=== PATIENT | male | born 1995 | race Caucasian/White ===

== ENCOUNTER → 2017-10-17 | Outpatient (CLI) | payer OTHER | END | disposition home or self-care (01) | LOC: KCIC MRI 11:26 | DX: M25.561 Pain in right knee (principal) | CPT/HCPCS: 73721 ==

== ENCOUNTER → 2018-11-23 | Outpatient (CLI) | payer OTHER ==
[~2018-11-23] MED LIST: GADOBUTROL 7.5 MMOL/7.5 ML VIAL INT ART ONE; IOHEXOL 300 MG/ML 10ML VIAL. INT ART ONE; LIDOCAINE 1% Multi-Dose 20 ML VIAL. ID ONE
--- NOTE | 2018-11-23 13:34 | KCIC ---
MR arthrogram of the right shoulder HISTORY: Right shoulder instability. Pain and limited range of motion. Wrestling injury 6 weeks ago. TECHNIQUE: Routine 4 plane sequences were obtained after intra-articular contrast injection. FINDINGS: Acromioclavicular joint is intact. Slight medial downsloping of the acromion. No evidence of a rotator cuff tear. No significant fluid or contrast in the subdeltoid bursa. Tear of the anteroinferior labrum. Minimal irregularity at the posterolateral humeral head, at least raising the question of a small chronic Hill-Sachs fracture. There is irregularity of the superior labrum with some increased signal compatible with a tear, coronal series 8, image 11 and Aber series 12, image 12. No bone destruction. No acute fracture. Biceps tendon intact. IMPRESSION: 1. Anteroinferior labral tear. 2. Small superior labral tear. Electronically signed by: Mohan March MD (11/23/2018 1:31 PM) [id number]
--- NOTE | 2018-11-23 17:14 | KCIC ---
PROCEDURE: Right shoulder injection using fluoroscopic guidance, prior to MR. HISTORY: Shoulder pain. TECHNIQUE: The procedure was explained to the patient as were potential risks, including among others infection, bleeding or allergic reaction. All questions were answered. Informed written and verbal consent was obtained. The shoulder was prepped and draped in the usual sterile manner. Following administration of local anesthetic, a 22-gauge needle was advanced into the anterior shoulder. Following negative aspiration, 12 cc of a solution of 5cc Omnipaque-300 contrast, 5 cc 1% lidocaine, 10 cc normal saline, and 0.1 cc gadolinium was injected without difficulty. The needle was removed. There was good hemostasis at the injection site. The patient left in stable condition without immediate complication. A single spot image is obtained. FLUOROSCOPY TIME:?33 seconds Electronically signed by: Mohan March MD (11/23/2018 5:10 PM) [email or web address]
== END | disposition home or self-care (01) ==
LOC: KCIC 08:22
PROVIDERS: ATTEND Orthopaedic Surgery
DX: S43.431A Superior glenoid labrum lesion of right shoulder, initial encounter (principal); X58.XXXA Exposure to other specified factors, initial encounter; Y93.89 Activity, other specified; Y92.89 Other specified places as the place of occurrence of the external cause; Y99.8 Other external cause status
CPT/HCPCS: 23350; 73040; 73222; A9585; Q9967

== ENCOUNTER → 2019-11-22 | Outpatient (CLI) | payer OTHER ==
[~2019-11-22] MED LIST changes: +0.9 % SODIUM CHLORIDE 10 ML DISP.SYRIN. ID ONE; +CONTRAST GIVEN. MC PRN; -GADOBUTROL 7.5 MMOL/7.5 ML VIAL INT ART ONE; +GADOTERATE 5 MMOL/10ML VIAL. INT ART ONE; -IOHEXOL 300 MG/ML 10ML VIAL. INT ART ONE; +IOHEXOL 300 MG/ML 50 ML VIAL. INT ART ONE
--- NOTE | 2019-11-22 13:39 | KCIC ---
MRI arthrogram of the left shoulder HISTORY: Left shoulder pain. Injury July 2019. TECHNIQUE: Routine multiplanar sequences are obtained. FINDINGS: Acromioclavicular joint is intact. No evidence of rotator cuff tear. No significant subdeltoid bursal fluid or contrast. Articular cartilage intact. Nondisplaced tear of the anteroinferior labrum. Heterogeneous signal with contrast accumulation in the superior labrum compatible with a tear. Biceps tendon is intact. No acute fracture. No aggressive bone destruction. Mild cystic-type change at the posterior greater tuberosity. IMPRESSION: 1. Anteroinferior labral tear. 2. Superior labral tear. Electronically signed by: Mohan March MD (11/22/2019 1:37 PM) [id number]
--- NOTE | 2019-11-22 14:02 | KCIC ---
PROCEDURE: Left shoulder injection using fluoroscopic guidance, prior to MR. HISTORY: Shoulder pain. TECHNIQUE: The procedure was explained to the patient as were potential risks, including among others infection, bleeding or allergic reaction. All questions were answered. Informed written and verbal consent was obtained. The shoulder was prepped and draped in the usual sterile manner. Following administration of local anesthetic, a 22-gauge needle was advanced into the anterior shoulder. Following negative aspiration, 12 cc of a solution of 5cc Omnipaque-300 contrast, 5 cc 1% lidocaine, 10 cc normal saline, and 0.1 cc gadolinium was injected without difficulty. The needle was removed. There was good hemostasis at the injection site. The patient left in stable condition without immediate complication. A single spot image is obtained. FLUOROSCOPY TIME:?12 seconds Electronically signed by: Mohan March MD (11/22/2019 1:59 PM) [id number]
== END | disposition home or self-care (01) ==
LOC: KCIC 10:21
PROVIDERS: ATTEND Orthopaedic Surgery
DX: S43.432A Superior glenoid labrum lesion of left shoulder, initial encounter (principal); M25.512 Pain in left shoulder; X58.XXXA Exposure to other specified factors, initial encounter; Y93.89 Activity, other specified; Y92.89 Other specified places as the place of occurrence of the external cause; Y99.8 Other external cause status
CPT/HCPCS: 73040; 73222; A9575; J3490; Q9967